=== PATIENT | female | born 1995 | race Caucasian/White ===

== ENCOUNTER 2017-06-27 16:50 | Emergency (ER) | payer SELFPAY ==
[2017-06-27] MEDS ORDERED: Ketorolac 60 MG/2 ML SDV IM ONE (18:30)
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
== END 2017-06-27 18:57 | disposition home or self-care (01) ==
LOC: JP.ED 16:50
DX: M54.5 Low back pain (principal); G89.29 Other chronic pain; F17.210 Nicotine dependence, cigarettes, uncomplicated
CPT/HCPCS: 96372; 99283; J1885